=== PATIENT | male | born 1950 | race Caucasian/White ===

== ENCOUNTER 2016-09-08 15:04 | Emergency (ER) | payer MEDICARE, OTHER ==
[~2016-09-08 15:04] MED LIST: Iopamidol 370 76% 100 ML VIAL ONE
[2016-09-08] MEDS ORDERED: Naloxone HCl 2 mg/2 ml Syringe ONE (15:16)
[2016-09-08 15:21] LABS: %Lymphocytes 14.7 % (21.0-51.0); %Neutrophils 76.4 % (42.0-75.0); Hemoglobin 15.5 g/dL (14.0-18.0); Mean Corpuscular HGB CONC 31.6 g/dL (32.0-36.0); Mean Corpuscular Hemoglobin 31.8 pg (27.0-31.0); Mean Platelet Volume 8.3 fL (7.4-10.4); Platelet Count 131 thou/uL (130-400); RBC Distribution Width 14.5 % (11.5-14.5); Red Blood Cell (RBC) Count 4.86 mill/uL (4.70-6.10); White Blood Cell (WBC) Count 7.9 thou/uL (4.8-10.8)
[2016-09-08 15:22] LABS: #Eosinphils 0.2 thou/uL (0.0-0.7); #Lymphocytes 1.2 thou/uL (1.20-3.40); #Monocytes 0.5 thou/uL (0.11-0.59); %Basophils 0.2 % (0.0-1.0); %Eosinophils 2.2 % (0.0-10.0); %Monocytes 6.5 % (0.0-10.0)
[2016-09-08 15:31] LABS: ALT (SGPT) 18 U/L (0-55); AST (SGOT) 21 U/L (5-34); Albumin 3.6 g/dL (3.4-4.8); Alkaline Phosphatase 90 U/L (40-150); Anion Gap 18 mmol/L (10-20); BUN (Urea Nitrogen) 8 mg/dL (8.4-25.7); Bilirubin, Total 0.8 mg/dL (0.2-1.2); Calc. Creatinine Clearance 0 mL/min (70-130); Calcium 9.5 mg/dL (7.8-10.44); Carbon Dioxide 30 mmol/L (23-31); Chloride 101 mmol/L (98-107); Estimated GFR-MDRD 72; Globulin 2.3 g/dL (2.4-3.5); Glucose 127 mg/dL (80-115); Potassium 4.6 mmol/L (3.5-5.1); Protein, Total 5.9 g/dL (5.8-8.1); Sodium 144 mmol/L (136-145)
[2016-09-08 15:36] LABS: CKMB 5.2 ng/mL (0-6.6); Troponin I 0.021 ng/mL (< 0.028)
--- NOTE | 2016-09-08 15:58 | CT ---
EXAM: NONCONTRAST HEAD CT 09/08/16 HISTORY: Injury. COMPARISON: 02/27/14 TECHNIQUE: Noncontrast head CT is performed from the skull base to skull vertex. FINDINGS: Limited evaluation due to motion degradation. No parenchymal hemorrhage. No extra-axial hematoma. No midline shift. Basilar cisterns are patent. Brain volume, age appropriate. Cortical bermudez/white matter differentiation is preserved. Ventricles a nd sulci are patent and symmetric. Adequate aeration of the mastoid air cells. Bilateral ethmoidal m ucosal thickening. Intact calvarium. IMPRESSION: No acute intracranial process. No intracranial posttraumatic sequela. POS: [facility]
[2016-09-08 16:03] LABS: Actual Bicarbonate (HCO3v) 33 mEq/L (24-30)
[2016-09-08 16:04] LABS: Base Excess 5.5 mEq/L (-2 - +2)
--- NOTE | 2016-09-08 16:07 | CT ---
EXAM: CERVICAL SPINE CT WITHOUT CONTRAST 09/08/16 HISTORY: Injury. COMPARISON: 08/01/11 TECHNIQUE: A cervical spine CT is performed without intravenous or intrathecal contrast. Axial images performed from the skull base to the thoracic inlet. Scattered coronal reformatted images are submitted for i nterpretation. FINDINGS: Evaluation of the lower cervical spine is limited by motion degradation. The visualized soft tissue neck structures are unremarkable. Mass effect upon the posterior left and right oropharynx secondary to medial deviation of both carotid arteries. There is small bilateral pleural effusions, Probable chronic changes in the lung apices. Coronal reformatted images demonstrate appropriate alignment of the lateral masses of C1 and C2. Odo ntoid process is intact. Appropriate alignment of the intra-articular facets with evidence of degene rative change. There is a cervical fusion plate with corpectomy and bone graft material spanning fro m C5 through C7. No perihardware lucency. Fusion hardware is not changed when compared to the previo us exam. There is 2.9 mm of anterolisthesis of C2 upon C3 and 2.3 mm of anterolisthesis of C3 upon C 4 likely on the basis of degenerative change. Based on the axial images, there is no acute cervical spine fracture. Varying degrees of central canal stenosis and foraminal narrowing on the basis of degenerative guy e. Limited evaluation by technique. IMPRESSION: 1. Uncomplicated cervical fusion. 2. Grade I anterolisthesis of C2 upon C3 and C3 upon C4 likely due to degenerative change. 3. No evidence of cervical spine fracture. POS: [facility]
[2016-09-08] MEDS ORDERED: Furosemide 20 MG/2 ML VIAL ONE (16:52)
--- NOTE | 2016-09-08 16:55 | RAD ---
PORTABLE AP CHEST: Date: 09-08-16 History: Trauma. FINDINGS: Compared to study on 09-24-15. Post-surgical changes related to anterior cervical fusion are again noted. Left subclavian central venous catheter remains in place. The cardiac silhouette is magnified by projection but is stable i n size from the prior exam and is probably enlarged. There is increased interstitial opacities seen throughout the lungs bilaterally. Patchy parenchymal changes seen at the right lung base. The int erstitial opacities are greater than on the PA and lateral chest x-ray on 09-19-15. Findings are like ly related to either pulmonary edema or infectious process. Follow up to complete resolution is rec ommended. Osseous structures are grossly intact. IMPRESSION: Increase perihilar interstitial opacities with greater patchy parenchymal changes at the right lung base. Findings may be related to interstitial edema or infectious process. Follow up to resolution is recommended. POS: [facility]
--- NOTE | 2016-09-08 17:06 | CT ---
CT CHEST CT ABDOMEN AND PELVIS CT LIMITED THORACIC SPINE CT LIMITED LUMBAR SPINE 09/08/16 HISTORY: Trauma. COMPARISON: None. TECHNIQUE: Although this is a CT chest, abdomen and pelvis with contrast, there is no contrast on this examinat ion. This could be from extravasation or actually no intravenous contrast was given. FINDINGS: Moderate sized bilateral layering pleural effusions with fluid extending to the major fissure bilate rally and right minor fissure. There is also interstitial septal thickening. Evaluation for underlyi ng nodule is limited due to the extent of pleural effusions. Moderate atherosclerotic plaque of the thoracic aorta. There is soft tissue edema in the bilateral a xilla and all throughout the soft tissues of the chest, abdomen and pelvis. Heart size is enlarged. There is dilatation of the pulmonary trunk of 38 mm. The ascending aorta measures up to 35 mm. No ao rtic dilatation. There are numerous mildly prominent mediastinal lymph nodes, largest in the AP window with a conglom eration of lymph nodes. None of these have short axis greater than 1 cm, although are abnormal in nu mber. ABDOMEN/PELVIS: Small volume ascites. Liver, spleen, gallbladder, pancreas unremarkable given noncontrast appearance . Adrenal glands are also mildly nodular. The kidneys are relatively unremarkable. There are vascula r calcifications of both renal arteries. Small volume fluid throughout the mesentery likely sequela of volume overload and congestive heart f ailure. No dilated or thick walled loops of large or small bowel to suggest traumatic injury. The os seous pelvis is intact. 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 Dorsal column stimulator is placed with its tip at the level of the mid T11 vertebral allen dy. Within the abdomen, no significant abnormal adenopathy. Thoracic and lumbar spine are without acute fracture. Sternum is without acute fracture. Visualized portions of the scapulae are without fracture. No displaced rib fracture. IMPRESSION: 1. No traumatic abnormality in the chest, abdomen or pelvis. 2. Evidence of congestive heart failure with cardiomegaly, pleural effusions, and pulmonary briseida ma. 3. Small volume ascites and free fluid throughout the soft tissues. This also be sequela of vol ume overload and CHF as well as loss of normal oncotic pressure. 4. Nonspecific mildly increased number although not enlarged mediastinal lymph nodes may be alison ctive. Followup recommended. POS: [facility]
[2016-09-08 17:39] LABS: Amphetamine Not Detected (NotDetected); Barbiturates Screen Not Detected (NotDetected); Benzodiazepine Screen Not Detected (NotDetected); Cocaine Metabolite Screen Not Detected (NotDetected); Medtox Control Line Valid? VALID (VALID); Methadone Not Detected (NotDetected); Methamphetamine Not Detected (NotDetected); Opiate Screen Detected (NotDetected); Oxycodone Screen Not Detected (NotDetected); Phencyclidine (PCP) Not Detected (NotDetected); THC/Cannabinoid Screen Not Detected (NotDetected); Tricyclic Screen Detected (NotDetected)
--- NOTE | 2016-09-08 17:52 | ERRECORD ---
[facility] EMERGENCY RECORD HPI MENTAL STATUS CHANGES (15:18 ABUS) CHIEF COMPLAINT: Patient presents for evaluation of mental status changes. HISTORIAN: Additional history obtained from EMS, 66 yr old M with reports of COPD, HLD, DM who comes in by EMS with reports of being found down outside of his house while smoking. Unwitnessed event. Duration down unknown. Glucose in field was 140's per EMS. came in on CPAP. LOCATION: Unable to localize symptoms. QUALITY: [place] coma score, Eye opening: (4) - Spontaneous, Verbal: (4) - Confused/disoriented, Motor: (6) - Obeys commands/Spontaneous, GCS Total: 14. TIME COURSE: Patient unable to describe onset of symptoms. ASSOCIATED WITH: No associated symptoms. RELIEVED BY: Patient's condition relieved by nothing. E/M CAVEAT: Emergency room caveat invoked due to patient with mental status changes. ROS (15:21 ABUS) NOTES: Systems not reviewed; unable., Emergency room caveat invoked due to patient with dyspnea. PAST MEDICAL HISTORY (16:43 SFRE) MEDICAL HISTORY: Flu vaccine not up to date, Tetanus not up to date, Pneumococcal vaccine not up to date, Past medical history includes history of diabetes, Past medical history includes history of hypertension. Past medical history includes cardiac history, unspecified arrhythmia, Treated with a pacemaker, since UNKNOWN, Past medical history includes history of diabetes, Type II, noncompliant with treatment regime, Past medical history includes history of hyperlipidemia, high cholesterol, Past medical history includes musculoskeletal disorder, CHRONIC BACK PROBLEMS, NUMBEROUS BACK INJURIES. Verified 09/18/2015. MALE SURGICAL HISTORY: MULTIPLE BACK SURGERIES, KNEE SURGERIES. PAIN PUMP IMPLANT Jul, PACEMAKER, Surgical history of orthopedic surgery, BACK, Notes: 5-6 SURGERIES FROM NUMEROUS INJURIES. Implanted AICD. Verified 09/18/2015. PSYCHIATRIC HISTORY: No previous psychiatric history. Verified 09/18/2015. SOCIAL HISTORY: , Patient smokes 3 packs per day. : SMOKED FOR 49 YEARS, Patient drinks every day, less than 5 drinks per day, Alcohol history notes: 2-3 BEERS/DAY, Patient denies drug use. Verified 09/18/2015. FAMILY HISTORY: Family history is non-contributory to this case. KNOWN ALLERGIES ALLERGIES: (Unconfirmed) Bee Venom (Unconfirmed) CLASS: 28:08.08 - Opiate Agonists (Unconfirmed): Reaction: [id number] &a-1R&a+25V*p+0X*k7808I*c202B*c15G*c2P*p-0X&a-25V&a+1R Name: Warren Flood : 1950 M66 MedRec: [id number] AcctNum: [id number] Prepared: Rene Sep 08, 2016 19:38 by Interface Page 1 of 4 pMD [facility] EMERGENCY RECORD Codeine (Unconfirmed) FOOD ALLERGIES: (Unconfirmed): Source: Patient, - COT[place] CANDY INGREDIENT: INSECT V - INSECT VENOMS (Unconfirmed): Reaction: [id number] INSECTS (Unconfirmed) LATEX ALLERGY? (Unconfirmed) VANILLA EXTRACT (Unconfirmed) CURRENT MEDICATIONS (15:16 AWAT) citalopram: TABLET : Strength - 40 mg : ORAL Patient Dose: Oral As Needed. Klor-Con M20: TABLET, EXT RELEASE, PARTICLES/CRYSTALS : Strength - 20 mEq : ORAL Patient Dose: Oral once a day (in the morning). atorvastatin: TABLET : Strength - 20 mg : ORAL Patient Dose: Oral once a day (at bedtime). Lasix: TABLET : Strength - 80 mg : ORAL Patient Dose: Oral once a day (in the morning). naproxen: TABLET : Strength - 500 mg : ORAL Patient Dose: Oral 2 times a day. [place]: TABLET : Strength - 10 mg-325 mg : ORAL Patient Dose: Oral every 4 to 6 hours.180 tab dated 01/29/14 - EMPTY. VITAL SIGNS (16:33 SFRE) VITAL SIGNS: BP: 165/110, Pulse: 102, Resp: 22 (Moderate Distress), Temp: 97.7 (Tympanic), Pain: 0, O2 sat: 81 on Room Air, Time: 09/08/2016 16:33. PHYSICAL EXAM (15:21 ABUS) CONSTITUTIONAL: Vital Signs Reviewed, Patient afebrile, Pulse normal, Blood pressure normal, Respiratory rate, Abnormal Pulse Oximetry, Patient appears, poorly groomed. HEAD: Head exam normal, Head exam included findings of head atraumatic, normocephalic. EYES: Eye exam normal, Eye exam included findings of eyelids normal to inspection, Pupils equally round and reactive to light, Left pupil 3 mm in size, Right pupil 3 mm in size, Conjunctiva normal, Sclera normal, no periorbital ecchymosis, no periorbital edema, no periorbital erythema. ENT: Ear exam normal, external ear normal, Nose exam normal, no nasal deformity. NECK: Neck exam included findings of normal range of motion, Trachea midline. &a-1R&a+25V*p+0X*[id number]*c202B*c15G*c2P*p-0X&a-25V&a+1R Name: Warren Flood : 1950 M66 MedRec: [id number] AcctNum: [id number] Prepared: Rene Sep 08, 2016 19:38 by Interface Page 2 of 4 pMD [facility] EMERGENCY RECORD RESPIRATORY CHEST: Rales present, to bilateral lower lobes, Chest exam included findings of chest movement symmetrical, Chest expansion equal. CARDIOVASCULAR: Cardiovascular assessment normal, Cardiovascular exam included findings of heart rate regular rate and rhythm, Heart sounds normal, normal S1, normal S2. ABDOMEN MALE: Bowel sounds normal, Distension present, no umbilical hernia present, no ventral hernia. BACK: Back exam normal, Back exam included findings of normal inspection, range of motion normal. UPPER EXTREMITY: no cyanosis, no clubbing, no edema, left dorsal hand abrasion. LOWER EXTREMITY: Lower extremity exam included findings of inspection abnormal, [place] venous insufficiency, Edema present, to bilateral lower extremities, pitting, +2, to knees. NEURO: [place] coma scale, Eye opening: (4) - Spontaneous, Verbal: (4) - Confused/disoriented, Motor: (6) - Obeys commands/Spontaneous, GCS Total: 14. EKG INTERPRETATION (15:17 ABUS) 12 LEAD EKG INTERPRETATION: 12 lead EKG interpreted by Emergency Department Physician at time of study, 12 lead EKG shows normal sinus rhythm, Rate (beats per minute): 71, with no ectopics, Interpretation: normal EKG, Conduction with, incomplete right bundle branch block, ST segments normal, T waves, Leads affected: III, Leads affected: aVf, Leads affected: V3, [place] normal, Clinical impression:, non-specific EKG. RADIOLOGYINTERPRETATION (17:16 ABUS) HEAD: Head CT negative, without contrast, no bleed, no mass, no acute ischemic stroke, no acute changes. NECK: Cervical spine films negative, no fracture, no subluxation, no soft tissue swelling, no foreign body. CHEST: Chest CT, with contrast shows, no fractures, no infiltrate, pneumothorax less than 10% on the left, no hemothorax, pleural effusion 10-50% on the left, pleural effusion 10-50% on the right. ABDOMEN: Abdomen/pelvis CT scan, with contrast negative, no abdominal aortic aneurysm, no appendicitis, no diverticulitis, no kidney stones, no injuries, no mass, no obstruction, no free air, no hydronephrosis. CHEMIST ORGANIC: Preliminary review of CT scans by, ED Physician, Radiologist. MEDICATION ADMINISTRATION SUMMARY Drug Name: Narcan, Dose Ordered: 1 mg, Route: IV Push, Status: Given, Time: 16:57 09/08/2016, &a-1R&a+25V*p+0X*i0067X*c202B*c15G*c2P*p-0X&a-25V&a+1R Name: Warren Flood [place] : 1950 M66 MedRec: [id number] AcctNum: [id number] Prepared: page Sep 08, 2016 19:38 by Interface Page 3 of 4 pMD [facility] EMERGENCY RECORD Drug Name: Lasix injection, Dose Ordered: 20 mg, Route: IV Push, Status: Given, Time: 16:57 09/08/2016, Drug Name: Narcan, Dose Ordered: 1 mg, Route: IV Push, Status: Given, Time: 16:56 09/08/2016, Detailed record available in Medication Service section. DOCTOR NOTES TEXT: 66 yr old M with reports of COPD, HLD, DM who comes in by EMS with reports of being found down outside of his house while smoking. Unwitnessed event. Duration down unknown. EXAM: GCS =14; moves all extremities; airway intact. Responded well to narcan 1 mg and now wants to go home. DDX: Opioid toxidrome, Drug Side Effect, metabolic complications Plan: CT HEAD, cspine, c-collar, narcan, CT Chest abd/pelv. glucose check, labs, VBG DISPO: Pending. (15:24 ABUS) report given to Dr Dumont in [facility] who accepted for transfer. (17:43 ABUS) PROBLEM LIST No recorded problems DIAGNOSIS (17:44 ABUS) FINAL: PRIMARY: Fluid overload, ADDITIONAL: Pulmonary Edema. PRESCRIPTION No recorded prescriptions DISPOSITION PATIENT: Disposition Type: Transfer, Disposition: Transfer to [facility], Disposition Transport: Ambulance, Condition: Good. (17:44 ABUS) Patient left the department. (19:34 SFRE) Wright: ABUS=MD Inder, Kenyon AWAT=DIOR Elias, Steve SFRE=DIOR Castellanos, Carrol &a-1R&a+25V*p+0X*[id number]*c202B*c15G*c2P*p-0X&a-25V&a+1R Name: Warren Flood [place] : 1950 M66 MedRec: [id number] AcctNum: [id number] Prepared: Rene Sep 08, 2016 19:38 by Interface Page 4 of 4 pMD MTDD
--- NOTE | 2016-09-08 17:56 | PICIS ---
[facility] EMERGENCY RECORD COMMUNICATIONS COMMUNICATIONS: Notes: DR HARO AT [facility] ER IN [place] ACCEPTS PT FOR TRANSFER AT THIS TIME. (17:43 AWAT) Notes: STILL UNABLE TO CONTACT PT'S SON OR DAUGHTER. PT VERBALIZED OK TO GO TO [facility] ER, AND THIS IS URGENT, SO WILL PROCEED. (18:17 AWAT) TRIAGE (15:09 AWAT) TRIAGE NOTES: FOUND DOWN. (15:09 AWAT) PATIENT: NAME: Warren Flood, AGE: 66, GENDER: male, : Sat 1950, TIME OF GREET: WedSep 08, 2016 15:05, PREFERRED LANGUAGE: Tajik, ETHNICITY: Not or , ECODE BILLING MAP: [facility], SSN: [id number], Zip Code: [address], KG WEIGHT: 136.08 (est.), PHONE: , , , PERSON ID: [id number]. (15:09 AWAT) COMPLAINT: FALL. (15:09 AWAT) ADMISSION: URGENCY: 3 Urgent, ADMISSION SOURCE: Home, TRANSPORT: AMBULANCE - [facility] EMS, BED: TRIAGE. (15:09 AWAT) PAIN: Patient complains of pain described as, Location ALL OVER--CHRONIC, Pain is constant, Aggravating factors:, Aggravating factors include PALPATION, Pain exacerbated by movement, Pain exacerbated by ROM. (16:43 SFRE) IMMUNIZATIONS: Flu vaccine not up to date. (16:43 SFRE) SIRS SCORING: Heart Rate 55-109 (0), Temp range 96.8-101.1 (0), respiratory rate 12-24 (0), Mental Status altered: no (0). (18:17 SFRE) TREATMENTS IN PROGRESS: Site: LAC, Gauge: 20, See EMS Record, C-Collar in place, Backboard/Spineboard in place, Patient on oxygen, via mask, Patient on chilling hood operator, Rhythm: NSR, Treatments given Prehospital: EMS HAD PATIENT ON CPAP BECAUSE HE SAID HE HAD WET LUNGS, Saline Lock. (18:18 SFRE) PROVIDERS: TRIAGE NURSE: Steve Elias RN. (15:09 AWAT) VITAL SIGNS: BP 165/110, Pulse 102, Resp 22, (Moderate Distress), Temp 97.7, (Tympanic), Pain 0, O2 Sat 81, on Room Air, Time 09/08/2016 16:33. (16:33 SFRE) PREVIOUS VISIT ALLERGIES: Bee Venom, Codeine. (15:09 AWAT) Bee Venom, Codeine. (16:43 SFRE) KNOWN ALLERGIES ALLERGIES: (Unconfirmed) Bee Venom (Unconfirmed) CLASS: 28:08.08 - Opiate Agonists (Unconfirmed): Reaction: [id number] Codeine (Unconfirmed) FOOD ALLERGIES: (Unconfirmed): Source: Patient, - COTTON CANDY INGREDIENT: INSECT V - INSECT VENOMS (Unconfirmed): Reaction: [id number] INSECTS (Unconfirmed) &a-1R&a+25V*p+0X*x5478V*c202B*c15G*c2P*p-0X&a-25V&a+1R Name: Warren Flood : 1950 M66 MedRec: [id number] AcctNum: [id number] Prepared: Rene Sep 08, 2016 19:45 by Interface Page 1 of 16 pMD [facility] EM[facility]GENCY [facility]ORD LATEX ALLERGY? (Unconfirmed) VANILLA EXTRACT (Unconfirmed) CURRENT MEDICATIONS (15:16 AWAT) citalopram: TABLET : Strength - 40 mg : ORAL Patient Dose: Oral As Needed. Klor-Con M20: TABLET, EXT RELEASE, PARTICLES/CRYSTALS : Strength - 20 mEq : ORAL Patient Dose: Oral once a day (in the morning). atorvastatin: TABLET : Strength - 20 mg : ORAL Patient Dose: Oral once a day (at bedtime). Lasix: TABLET : Strength - 80 mg : ORAL Patient Dose: Oral once a day (in the morning). naproxen: TABLET : Strength - 500 mg : ORAL Patient Dose: Oral 2 times a day. [place]: TABLET : Strength - 10 mg-325 mg : ORAL Patient Dose: Oral every 4 to 6 hours.180 tab dated 01/29/14 - EMPTY. VITAL SIGNS (16:33 SFRE) VITAL SIGNS: BP: 165/110, Pulse: 102, Resp: 22 (Moderate Distress), Temp: 97.7 (Tympanic), Pain: 0, O2 sat: 81 on Room Air, Time: 09/08/2016 16:33. NURSING ASSESSMENT: CARDIOVASCULAR (18:11 SFRE) CONSTITUTIONAL: Patient arrives, via stretcher, via Emergency Medical Services, History obtained from, Emergency Medical Services, family member: HOME HEALTH NURSE, Patient appears, in respiratory distress, obese, restless, Patient, lethargic, Patient, responsive to verbal stimuli, Patient is, oriented to person, oriented to place, Skin warm, Skin dry, Skin normal in color, Mucous membranes pink, Mucous membranes, dry, Patient, poorly groomed, with poor personal hygiene, Patient complains of FOUND FACE DOWN ON GROUND BY HOME HEALTH. CARDIOVASCULAR: Cardiovascular assessment findings include heart rate, tachycardic, Heart rhythm normal sinus, Associated with dyspnea, with exertion, when lying flat (orthopnea), with position change, Associated with weakness, GENERALALIZED, Notes: PER HOME HEALTH NURSE HE DOESN'T USE O2 NEEDED. RESPIRATORY/CHEST: Lungs auscultated, Respiratory assessment findings include respiratory effort easy, Respirations regular, Conversing normally, Neck and chest exam findings include trachea &a-1R&a+25V*p+0X*i7339B*c202B*c15G*c2P*p-0X&a-25V&a+1R Name: Warren Flood : 1950 M66 MedRec: [id number] AcctNum: [id number] Prepared: WedSep 08, 2016 19:45 by Interface Page 2 of 16 pMD [facility] EMERGENCY RECORD midline, Chest expansion equal, Chest movement symmetrical, Signs of distress, in moderate distress, no associated cough noted, no associated fever. SAFETY: Side rails up, Cart/Stretcher in lowest position, Family at bedside, Call light within reach, Hospital ID band on. NURSING ASSESSMENT: RESPIRATORY /CHEST (18:26 SFRE) RESPIRATORY/CHEST: Lungs auscultated, Breath sounds with rhonchi, Respiratory assessment findings include respiratory effort, shallow, PATIENT IS OBESES AND VERY WEAK, Respirations regular, Converses, in short phrases, Neck and chest exam findings include trachea midline, Chest expansion equal, Chest movement symmetrical, Signs of distress, in mild distress, no associated cough noted, no associated fever, Notes: PLACED ON 2L N/C. ENT: Mouth and throat assessment findings include mouth inspection normal, Uvula normal, Tonsils normal, Mucous membranes pink, and moist, Able to swallow, Speech normal. SAFETY: Side rails up, Cart/Stretcher in lowest position, Call light within reach, Hospital ID band on. NURSING PROCEDURE: PIPELINE OPERATOR (15:09 SFRE) PIPELINE OPERATOR: Cardiac monitoring indicated for mental status changes, Cardiac monitoring indicated for SOB, Patient placed on chilling hood operator, Heart rate: 102, showing sinus tachycardia, Patient placed on non-invasive blood pressure monitor, Patient placed on continuous pulse oximetry, Adult/pediatric oxisensor applied, Oxygen saturation 100%, Notes: 100% ON ROOM AIR. NURSING PROCEDURE: EKG CHART (18:25 SFRE) EK lead EKG performed on the left chest, done by LUIS ANTONIO PAL, first EKG. FOLLOW-UP: After procedure, EKG for interpretation given to Dr. TAYLOR. NURSING PROCEDURE: INTAKE AND OUTPUT (18:54 SFRE) INTAKE AND OUTPUT: Total Intake (ml): 0ml, Urine output(ml): 1750, Total Output (ml): 99518430ls, Grand Total: Output is greater than intake by 1750mls. NURSING PROCEDURE: IV IV SITE 1: IV therapy indicated for hydration, IV therapy indicated for medication administration, IV therapy indicated for SOB, IV established, to the left antecubital, using a 20 gauge catheter, Flushed with normal saline (mls): BY EMS CHEESE PACKER. (15:09 SFRE) FOLLOW-UP SITE 1: After procedure, no drainage at IV site, After procedure, no swelling at IV site, After procedure, no redness at IV site. (18:54 SFRE) &a-1R&a+25V*p+0X*b1808V*c202B*c15G*c2P*p-0X&a-25V&a+1R Name: Warren Flood : 1950 M66 MedRec: [id number] AcctNum: [id number] Prepared: WedSep 08, 2016 19:45 by Interface Page 3 of 16 D [facility] EMERGENCY RECORD NURSING PROCEDURE: URINE COLLECTION (18:21 AWAT) PATIENT IDENTIFIER: Patient actively involved in identification process, Patient's identity verified by patient stating name, Patient's identity verified by hospital ID bracelet. URINE COLLECTION MALE: Urine collection indicated for CONSTANT INCONTINENCE, TRYING TO CRAWL OOB TO URINARE BESIDE THE URINAL., Notes: NO URINE NEEDED. ALREADY SENT PREVIOUS SPECIMEN TO LAB. NOTES: Patient tolerated procedure well, Notes: 16 FR F/C INSERTED PER STERILE TECHNIQUE. PATRICK CLAMPED AT 600ML X 10 MINUTES, THEN RE-OPENED. SAFETY: Side rails up, Cart/Stretcher in lowest position, Call light within reach, Hospital ID band on, Physician notified of above findings. ORDER DETAILS Order Name: B type Natriuretic Peptide, Status: Active, Time: 15:10 09/08/2016, User: ABUS, - Ordered for: MD Taylor Anthony, - Entered by: MD Taylor Anthony - Tue Sep 08, 2016 15:10, - Quantity: 1, Order Name: PIPELINE OPERATOR ED, Status: Done, Time: 15:27 09/08/2016, User: MEMO, - Ordered for: MD Taylor Anthony, - Entered by: MD Taylor Anthony - Tue Sep 08, 2016 15:10, - Quantity: 1, Order Name: Cardiac Profile w/CKMB & Troponin - I, Status: Active, Time: 15:10 09/08/2016, User: ABUS, - Ordered for: MD Taylor Anthony, - Entered by: MD Taylor Anthony - Tue Sep 08, 2016 15:10, - Quantity: 1, Order Name: CBC with Differential, Status: Active, Time: 15:10 09/08/2016, User: ABUS, - Ordered for: MD Taylor Anthony, - Entered by: MD Taylor Anthony - Tue Sep 08, 2016 15:10, - Quantity: 1, Order Name: CK (CPK), Status: Active, Time: 15:19 09/08/2016, User: ABUS, - Ordered for: MD Taylor Anthony, - Entered by: MD Taylor Anthony - Tue Sep 08, 2016 15:19, - Quantity: 1, Order Name: Comprehensive Metabolic Panel, Status: Active, Time: 15:10 09/08/2016, User: ABUS, - Ordered for: MD Taylor Anthony, - Entered by: MD Taylor Anthony - Tue Sep 08, 2016 15:10, - Quantity: 1, Order Name: CT Brain WO Con, Status: Active, Time: 15:13 09/08/2016, User: KILLIAN, - Ordered for: MD Taylor Anthony, &a-1R&a+25V*p+0X*n7027K*c202B*c15G*c2P*p-0X&a-25V&a+1R Name: Warren Flood : 1950 M66 MedRec: [id number] AcctNum: [id number] Prepared: Rene Sep 08, 2016 19:45 by Interface Page 4 of 16 D [facility] EMERGENCY RECORD - Entered by: MD Taylor Anthony - Tue Sep 08, 2016 15:13, - Quantity: 1, Order Name: CT Cervical Spine WO Con, Status: Active, Time: 15:13 09/08/2016, User: ABUS, - Ordered for: MD Taylor Anthony, - Entered by: MD Taylor Anthony - Tue Sep 08, 2016 15:13, - Quantity: 1, Order Name: CT Chest Abd Pelvis W Con(Trauma), Status: Active, Time: 15:13 09/08/2016, User: ABUS, - Ordered for: MD Taylor Anthony, - Entered by: MD Taylor Anthony - Tue Sep 08, 2016 15:13, - Quantity: 1, Order Name: Drug Screen, Urine, Status: Active, Time: 15:50 09/08/2016, User: ABUS, - Ordered for: MD Taylor Anthony, - Entered by: MD Taylor Anthony - Tue Sep 08, 2016 15:50, - Quantity: 1, Order Name: EKG 12 Lead in Emergency Room, Status: Active, Time: 15:10 09/08/2016, User: ABUS, - Ordered for: MD Taylor Anthony, - Entered by: MD Taylor Anthony - Tue Sep 08, 2016 15:10, - Quantity: 1, Order Name: ERRT Emerg Room CPAP Treatment, Status: Active, Time: 15:11 09/08/2016, User: ABUS, - Ordered for: MD Taylor Anthony, - Entered by: MD Taylor Anthony - page Sep 08, 2016 15:11, - Quantity: 1, Order Name: ERRT Oxygen Usage ER, Status: Active, Time: 15:10 09/08/2016, User: ABUS, - Ordered for: MD Taylor Anthony, - Entered by: MD Taylor Anthony - Rene Sep 08, 2016 15:10, - Quantity: 1, Order Name: ERRT Pulse Oximeter ER, Status: Active, Time: 15:10 09/08/2016, User: ABUS, - Ordered for: MD Taylor Anthony, - Entered by: MD Taylor Anthony - Rene Sep 08, 2016 15:10, - Quantity: 1, Order Name: PATRICK CATHETER ED, Status: Done, Time: 18:23 09/08/2016, User: [email or web address], - Ordered for: MD Taylor Anthony, - Entered by: DIOR Elias Adam - WedSep 08, 2016 18:20, - Quantity: 1, Order Name: INTAKE& OUTPUT MONITORING ED, Status: Done, Time: 16:58 09/08/2016, User: SFRE, - Ordered for: MD Taylor Anthony, - Entered by: MD Taylor Anthony - page Sep 08, 2016 15:53, - Quantity: 1, Order Name: Myoglobin Serum, Status: Active, Time: 15:19 09/08/2016, User: ABUS, - Ordered for: MD Taylor Anthony, &a-1R&a+25V*p+0X*p5209R*c202B*c15G*c2P*p-0X&a-25V&a+1R Name: Warren Flood : 1950 M66 MedRec: [id number] AcctNum: [id number] Prepared: WedSep 08, 2016 19:45 by Interface Page 5 of 16 pMD [facility] EMERGENCY RECORD - Entered by: MD Taylor Anthony - Rene Sep 08, 2016 15:19, - Quantity: 1, Order Name: SALINE LOCK, Status: Done, Time: 15:27 09/08/2016, User: MEMO, - Ordered for: MD Taylor Anthony, - Entered by: MD Taylor Anthony - Tue Sep 08, 2016 15:10, - Quantity: 1, Order Name: VBG (For BUR,MAD, and AMIRA), Status: Active, Time: 15:11 09/08/2016, User: KILLIAN, - Ordered for: MD Taylor Anthony, - Entered by: MD Taylor Anthony - Tue Sep 08, 2016 15:11, - Quantity: 1, Order Name: XR Chest 1 View Portable, Status: Active, Time: 15:20 09/08/2016, User: KILLIAN, - Ordered for: MD Taylor Anthony, - Entered by: MD Taylor Anthony - Tue Sep 08, 2016 15:20, - Quantity: 1. MEDICATION ADMINISTRATION SUMMARY Drug Name: Narcan, Dose Ordered: 1 mg, Route: IV Push, Status: Given, Time: 16:57 09/08/2016, Drug Name: Lasix injection, Dose Ordered: 20 mg, Route: IV Push, Status: Given, Time: 16:57 09/08/2016, Drug Name: Narcan, Dose Ordered: 1 mg, Route: IV Push, Status: Given, Time: 16:56 09/08/2016, Detailed record available in Medication Service section. MEDICATION SERVICE Lasix injection: Order: Lasix injection (furosemide) - Dose: 20 mg : IV Push Schedule: Now Ordered by: Kenyon Taylor MD Entered by: Kenyon Taylor MD WedSep 08, 2016 15:52 , Acknowledged by: Carrol Castellanos RN WedSep 08, 2016 16:50 Documented as given by: Carrol Castellanos RN WedSep 08, 2016 16:57 Patient, Medication, Dose, Route and Time verified prior to administration. Amount given: 20MG, IV SITE #1 IVP, repeat same medication, Slowly, Awake and alert- acceptable, Catheter placement confirmed via flush prior to administration, IV site without signs or symptoms of infiltration during medication administration, No swelling during administration, No drainage during administration, IV flushed after administration, Correct patient, time, route, dose and medication confirmed prior to administration, Patient advised of actions and side-effects prior to administration, Allergies confirmed and medications reviewed prior to administration, Patient in position of comfort, Side rails up, Cart in lowest position, Family at bedside. Narcan: Order: Narcan (naloxone HCl) - Dose: 1 mg : IV Push &a-1R&a+25V*p+0X*j4602E*c202B*c15G*c2P*p-0X&a-25V&a+1R Name: Warren Flood : 1950 M66 MedRec: [id number] AcctNum: [id number] Prepared: WedSep 08, 2016 19:45 by Interface Page 6 of 16 pMD [facility] EMERGENCY RECORD Ordered by: Kenyon Taylor MD Entered by: Kenyon Taylor MD WedSep 08, 2016 16:41 , Acknowledged by: Carrol Castellanos RN WedSep 08, 2016 16:50 Documented as given by: Carrol Castellanos RN Sep 08, 2016 16:56 Patient, Medication, Dose, Route and Time verified prior to administration. Amount given: 1MG, IV SITE #1 IVP, initial medication, Slightly drowsey, easily aroused-acceptable, Catheter placement confirmed via flush prior to administration, IV site without signs or symptoms of infiltration during medication administration, No swelling during administration, No drainage during administration, IV flushed after administration, Correct patient, time, route, dose and medication confirmed prior to administration, Patient advised of actions and side-effects prior to administration, Allergies confirmed and medications reviewed prior to administration. Narcan: Order: Narcan (naloxone HCl) - Dose: 1 mg : IV Push Ordered by: Kenyon Taylor MD Entered by: Kenyon Taylor MD WedSep 08, 2016 15:14 , Acknowledged by: Carrol Castellanos RN Sep 08, 2016 16:50 Documented as given by: Carrol Castellanos RN Sep 08, 2016 16:57 Patient, Medication, Dose, Route and Time verified prior to administration. Amount given: 1MG, IV SITE #1 IVP, initial medication, repeat same medication, Awake and alert- acceptable, Catheter placement confirmed via flush prior to administration, IV site without signs or symptoms of infiltration during medication administration, No swelling during administration, No drainage during administration, IV flushed after administration, Correct patient, time, route, dose and medication confirmed prior to administration, Patient advised of actions and side-effects prior to administration, Allergies confirmed and medications reviewed prior to administration, Patient in position of comfort, Side rails up, Cart in lowest position, Family at bedside. HPI MENTAL STATUS CHANGES (15:18 ABUS) CHIEF COMPLAINT: Patient presents for evaluation of mental status changes. HISTORIAN: Additional history obtained from EMS, 66 yr old M with reports of COPD, HLD, DM who comes in by EMS with reports of being found down outside of his house while smoking. Unwitnessed event. Duration down unknown. Glucose in field was 140's per EMS. came in on CPAP. LOCATION: Unable to localize symptoms. QUALITY: Hardin coma score, Eye opening: (4) - Spontaneous, Verbal: (4) - Confused/disoriented, Motor: (6) - Obeys commands/Spontaneous, GCS Total: 14. TIME COURSE: Patient unable to describe onset of symptoms. ASSOCIATED WITH: No associated symptoms. RELIEVED BY: Patient's condition relieved by nothing. E/M CAVEAT: Emergency room caveat invoked due to patient with mental status changes. &a-1R&a+25V*p+0X*d7153N*c202B*c15G*c2P*p-0X&a-25V&a+1R Name: Warren Flood : 1950 M66 MedRec: [id number] AcctNum: [id number] Prepared: Rene Sep 08, 2016 19:45 by Interface Page 7 of 16 pMD [facility] EMERGENCY RECORD ROS (15:21 ABUS) NOTES: Systems not reviewed; unable., Emergency room caveat invoked due to patient with dyspnea. PAST MEDICAL HISTORY (16:43 SFRE) MEDICAL HISTORY: Flu vaccine not up to date, Tetanus not up to date, Pneumococcal vaccine not up to date, Past medical history includes history of diabetes, Past medical history includes history of hypertension. Past medical history includes cardiac history, unspecified arrhythmia, Treated with a pacemaker, since UNKNOWN, Past medical history includes history of diabetes, Type II, noncompliant with treatment regime, Past medical history includes history of hyperlipidemia, high cholesterol, Past medical history includes musculoskeletal disorder, CHRONIC BACK PROBLEMS, NUMBEROUS BACK INJURIES. Verified 09/18/2015. MALE SURGICAL HISTORY: MULTIPLE BACK SURGERIES, KNEE SURGERIES. PAIN PUMP IMPLANT Jul, PACEMAKER, Surgical history of orthopedic surgery, BACK, Notes: 5-6 SURGERIES FROM NUMEROUS INJURIES. Implanted AICD. Verified 09/18/2015. PSYCHIATRIC HISTORY: No previous psychiatric history. Verified 09/18/2015. SOCIAL HISTORY: , Patient smokes 3 packs per day. : SMOKED FOR 49 YEARS, Patient drinks every day, less than 5 drinks per day, Alcohol history notes: 2-3 BEERS/DAY, Patient denies drug use. Verified 09/18/2015. FAMILY HISTORY: Family history is non-contributory to this case. PHYSICAL EXAM (15:21 ABUS) CONSTITUTIONAL: Vital Signs Reviewed, Patient afebrile, Pulse normal, Blood pressure normal, Respiratory rate, Abnormal Pulse Oximetry, Patient appears, poorly groomed. HEAD: Head exam normal, Head exam included findings of head atraumatic, normocephalic. EYES: Eye exam normal, Eye exam included findings of eyelids normal to inspection, Pupils equally round and reactive to light, Left pupil 3 mm in size, Right pupil 3 mm in size, Conjunctiva normal, Sclera normal, no periorbital ecchymosis, no periorbital edema, no periorbital erythema. ENT: Ear exam normal, external ear normal, Nose exam normal, no nasal deformity. NECK: Neck exam included findings of normal range of motion, Trachea midline. RESPIRATORY CHEST: Rales present, to bilateral lower lobes, Chest exam included findings of chest movement symmetrical, Chest expansion equal. CARDIOVASCULAR: Cardiovascular assessment normal, Cardiovascular exam included findings of heart rate regular rate and rhythm, Heart &a-1R&a+25V*p+0X*h0077F*c202B*c15G*c2P*p-0X&a-25V&a+1R Name: Warren Flood : 1950 M66 MedRec: [id number] AcctNum: [id number] Prepared: Rene Sep 08, 2016 19:45 by Interface Page 8 of 16 pMD [facility] EMERGENCY RECORD sounds normal, normal S1, normal S2. ABDOMEN MALE: Bowel sounds normal, Distension present, no umbilical hernia present, no ventral hernia. BACK: Back exam normal, Back exam included findings of normal inspection, range of motion normal. UPPER EXTREMITY: no cyanosis, no clubbing, no edema, left dorsal hand abrasion. LOWER EXTREMITY: Lower extremity exam included findings of inspection abnormal, Issa LE venous insufficiency, Edema present, to bilateral lower extremities, pitting, +2, to knees. NEURO: Kendall coma scale, Eye opening: (4) - Spontaneous, Verbal: (4) - Confused/disoriented, Motor: (6) - Obeys commands/Spontaneous, GCS Total: 14. EVENTS TRANSFER: Triage to Emergency Triage. (WedSep 08, 2016 15:09 AWAT) Emergency Triage to Main ED -02. (15:10 AWAT) Removed from Emergency Main ED -02. (19:34 SFRE) RADIOLOGYINTERPRETATION (17:16 ABUS) HEAD: Head CT negative, without contrast, no bleed, no mass, no acute ischemic stroke, no acute changes. NECK: Cervical spine films negative, no fracture, no subluxation, no soft tissue swelling, no foreign body. CHEST: Chest CT, with contrast shows, no fractures, no infiltrate, pneumothorax less than 10% on the left, no hemothorax, pleural effusion 10-50% on the left, pleural effusion 10-50% on the right. ABDOMEN: Abdomen/pelvis CT scan, with contrast negative, no abdominal aortic aneurysm, no appendicitis, no diverticulitis, no kidney stones, no injuries, no mass, no obstruction, no free air, no hydronephrosis. IMMIGRATION LAWYER: Preliminary review of CT scans by, ED Physician, Radiologist. EKG INTERPRETATION (15:17 ABUS) 12 LEAD EKG INTERPRETATION: 12 lead EKG interpreted by Emergency Department Physician at time of study, 12 lead EKG shows normal sinus rhythm, Rate (beats per minute): 71, with no ectopics, Interpretation: normal EKG, Conduction with, incomplete right bundle branch block, ST segments normal, T waves, Leads affected: III, Leads affected: aVf, Leads affected: V3, [place] normal, Clinical impression:, non-specific EKG. DOCTOR NOTES TEXT: 66 yr old M with reports of COPD, HLD, DM who comes in by EMS with reports of being found down outside of his house while &a-1R&a+25V*p+0X*m4041Z*c202B*c15G*c2P*p-0X&a-25V&a+1R Name: Warren Flood : 1950 M66 MedRec: [id number] AcctNum: [id number] Prepared: WedSep 08, 2016 19:45 by Interface Page 9 of 16 pMD [facility] EMERGENCY RECORD smoking. Unwitnessed event. Duration down unknown. EXAM: GCS =14; moves all extremities; airway intact. Responded well to narcan 1 mg and now wants to go home. DDX: Opioid toxidrome, Drug Side Effect, metabolic complications Plan: CT HEAD, cspine, c-collar, narcan, CT Chest abd/pelv. glucose check, labs, VBG DISPO: Pending. (15:24 ABUS) report given to Dr Haro in [place] ED who accepted for transfer. (17:43 ABUS) PROBLEM LIST No recorded problems DIAGNOSIS (17:44 ABUS) FINAL: PRIMARY: Fluid overload, ADDITIONAL: Pulmonary Edema. DISPOSITION PATIENT: Disposition Type: Transfer, Disposition: Transfer to [facility], Disposition Transport: Ambulance, Condition: Good. (17:44 ABUS) Patient left the department. (19:34 SFRE) PRESCRIPTION No recorded prescriptions IMAGING *EKG: Image captured from scanner. (15:41 JPAR) *MEMORANDUM OF TRANSFER: Image captured from scanner. (18:13 AWAT) EMS TRANSPORT ORDERS: Image captured from scanner. (18:13 AWAT) CONSENTS: Image captured from scanner. (18:15 AWAT) TRANSFER WORKSHEET: Image captured from scanner. (19:19 ADEA) Page 2 added. Image captured from scanner. (19:20 ADEA) *SUPPLY CHARGE SHEET: Image captured from scanner. (19:21 ADEA) MIST: Image captured from scanner. (19:27 SFRE) MEDS: Image captured from scanner. (19:28 SFRE) VITAL SIGNS: Image captured from scanner. (19:28 SFRE) ADMIN (17:44 ABUS) DIGITAL SIGNATURE: MD Inder, Kenyon. RESULTS RADIOLOGY: CT Cervical Spine WO Con Observe DT: WedSep 08, 2016 15:15, CSP EXAM: CERVICAL SPINE CT WITHOUT CONTRAST 09/08/16 &a-1R&a+25V*p+0X*e0819X*c202B*c15G*c2P*p-0X&a-25V&a+1R Name: Warren Flood : 1950 M66 MedRec: [id number] AcctNum: [id number] Prepared: WedSep 08, 2016 19:45 by Interface Page 10 of 16 [facility] EMERGENCY RECORD HISTORY: Injury. COMPARISON: 08/01/11 TECHNIQUE: A cervical spine CT is performed without intravenous or intrathecal contrast. Axial images performed from the skull base to the thoracic inlet. Scattered coronal reformatted images are submitted for i nterpretation. FINDINGS: Evaluation of the lower cervical spine is limited by motion degradation. The visualized soft tissue neck structures are unremarkable. Mass effect upon the posterior left and right oropharynx secondary to medial deviation of both carotid arteries. There is small bilateral pleural effusions, Probable chronic changes in the lung apices. Coronal reformatted images demonstrate appropriate alignment of the lateral masses of C1 and C2. Odo ntoid process is intact. Appropriate alignment of the intra-articular facets with evidence of degene rative change. There is a cervical fusion plate with corpectomy and bone graft material spanning fro m C5 through C7. No perihardware lucency. Fusion hardware is not changed when compared to the previo us exam. There is 2.9 mm of anterolisthesis of C2 upon C3 and 2.3 mm of anterolisthesis of C3 upon C 4 likely on the basis of degenerative change. Based on the axial images, there is no acute cervical spine fracture. Varying degrees of central canal stenosis and foraminal narrowing on the basis of degenerative guy e. Limited evaluation by technique. IMPRESSION: 1. Uncomplicated cervical fusion. 2. Grade I anterolisthesis of C2 upon C3 and C3 upon C4 likely due to degenerative change. 3. No evidence of cervical spine fracture. POS: H . (16:39 ABUS) CT Brain WO Con Observe DT: WedSep 08, 2016 15:15, BR &a-1R&a+25V*p+0X*i9762K*c202B*c15G*c2P*p-0X&a-25V&a+1R Name: Warren Flood : 1950 M66 MedRec: [id number] AcctNum: [id number] Prepared: WedSep 08, 2016 19:45 by Interface Page 11 of 16 [facility] EMERGENCY RECORD EXAM: NONCONTRAST HEAD CT 09/08/16 HISTORY: Injury. COMPARISON: 02/27/14 TECHNIQUE: Noncontrast head CT is performed from the skull base to skull vertex. FINDINGS: Limited evaluation due to motion degradation. No parenchymal hemorrhage. No extra-axial hematoma. No midline shift. Basilar cisterns are patent. Brain volume, age appropriate. Cortical bermudez/white matter differentiation is preserved. Ventricles a nd sulci are patent and symmetric. Adequate aeration of the mastoid air cells. Bilateral ethmoidal m ucosal thickening. Intact calvarium. IMPRESSION: No acute intracranial process. No intracranial posttraumatic sequela. POS: [facility] . (16:39 ABUS) LABORATORY: CK (CPK) Collection DT: WedSep 08, 2016 15:45, CK (CPK) 157 U/L, Range (30-200). (15:50 ABUS) B type Natriuretic Peptide Collection DT: WedSep 08, 2016 15:15, *B type Natriuretic Peptide 326.9 - H pg/mL, Range (0-100). (15:50 ABUS) Cardiac Profile w/CKMB & TropI Collection DT: WedSep 08, 2016 15:15, CKMB 5.2 ng/mL, Range (0-6.6), Troponin I 0.021 ng/mL, Range (< 0.028), Reference Range , 0.00 - 0.028 ng/mL Negative 0.029 - 0.29 ng/mL , Indeterminate Greater or Equal to 0.3 ng/mL Strongly suggests IA , . (15:50 ABUS) Comprehensive Metabolic Panel Collection DT: WedSep 08, 2016 15:15, Sodium 144 mmol/L, Range (136-145), Potassium 4.6 mmol/L, Range (3.5-5.1), Chloride 101 mmol/L, Range (98-107), Carbon Dioxide 30 mmol/L, Range (23-31), Anion Gap 18 mmol/L, Range (10-20), *BUN (Urea Nitrogen) 8 - L mg/dL, Range (8.4-25.7), &a-1R&a+25V*p+0X*i8841P*c202B*c15G*c2P*p-0X&a-25V&a+1R Name: Warren Flood : 1950 M66 MedRec: [id number] AcctNum: [id number] Prepared: WedSep 08, 2016 19:45 by Interface Page 12 of 16 [facility] EMERGENCY RECORD Creatinine 1.03 mg/dL, Range (0.7-1.3), Estimated GFR-MDRD 72 , Reference Range for Estimated GFR: Greater than 90, mL/min/1.73 m2 NOTE: The MDRD equation has not been validated for use, with the elderly (over 70 years of age), women, patients with, serious comorbid condition or persons with extremes of body size, muscle, mass, or nutritional status. , *Glucose 127 - H mg/dL, Range (80-115), Calcium 9.5 mg/dL, Range (7.8-10.44), Bilirubin, Total 0.8 mg/dL, Range (0.2-1.2), Protein, Total 5.9 g/dL, Range (5.8-8.1), NOTE: Plasma values are generally 0.3 to 0.5 g/dL higher than serum values, due to the presence of fibrinogen. , Albumin 3.6 g/dL, Range (3.4-4.8), *Globulin 2.3 - L g/dL, Range (2.4-3.5), Alb/Glob Ratio 1.6 g/dL, Range (1.2-2.2), Alkaline Phosphatase 90 U/L, Range (40-150), AST (SGOT) 21 U/L, Range (5-34), ALT (SGPT) 18 U/L, Range (0-55). (15:50 ABUS) CBC with Differential Collection DT: WedSep 08, 2016 15:15, White Blood Cell (WBC) Count 7.9 thou/uL, Range (4.8-10.8), Red Blood Cell (RBC) Count 4.86 mill/uL, Range (4.70-6.10), Hemoglobin 15.5 g/dL, Range (14.0-18.0), Hematocrit 48.9 %, Range (42.0-52.0), *Mean Corpuscular Volume 101.0 - H fL, Range (80.0-94.0), *Mean Corpuscular Hemoglobin 31.8 - H pg, Range (27.0-31.0), *Mean Corpuscular HGB CONC 31.6 - L g/dL, Range (32.0-36.0), RBC Distribution Width 14.5 %, Range (11.5-14.5), Platelet Count 131 thou/uL, Range (130-400), Mean Platelet Volume 8.3 fL, Range (7.4-10.4), *%Neutrophils 76.4 - H %, Range (42.0-75.0), *%Lymphocytes 14.7 - L %, Range (21.0-51.0), %Monocytes 6.5 %, Range (0.0-10.0), %Eosinophils 2.2 %, Range (0.0-10.0), %Basophils 0.2 %, Range (0.0-1.0), #Neutrophils 6.0 thou/uL, Range (1.40-6.50), #Lymphocytes 1.2 thou/uL, Range (1.20-3.40), #Monocytes 0.5 thou/uL, Range (0.11-0.59), #Eosinphils 0.2 thou/uL, Range (0.0-0.7), #Basophils 0.0 thou/uL, Range (0.0-0.2). (15:50 ABUS) Cardiac Profile w/CKMB & TropI Collection DT: WedSep 08, 2016 15:15, CKMB 5.2 ng/mL, Range (0-6.6), Troponin I 0.021 ng/mL, Range (< 0.028), Reference Range , 0.00 - 0.028 ng/mL Negative 0.029 - 0.29 ng/mL , Indeterminate &a-1R&a+25V*p+0X*i8273P*c202B*c15G*c2P*p-0X&a-25V&a+1R Name: Warren Flood : 1950 M66 MedRec: [id number] AcctNum: [id number] Prepared: WedSep 08, 2016 19:45 by Interface Page 13 of 16 [facility] EMERGENCY RECORD Greater or Equal to 0.3 ng/mL Strongly suggests IA , . (16:16 SFRE) Comprehensive Metabolic Panel Collection DT: WedSep 08, 2016 15:15, Sodium 144 mmol/L, Range (136-145), Potassium 4.6 mmol/L, Range (3.5-5.1), Chloride 101 mmol/L, Range (98-107), Carbon Dioxide 30 mmol/L, Range (23-31), Anion Gap 18 mmol/L, Range (10-20), *BUN (Urea Nitrogen) 8 - L mg/dL, Range (8.4-25.7), Creatinine 1.03 mg/dL, Range (0.7-1.3), Estimated GFR-MDRD 72 , Reference Range for Estimated GFR: Greater than 90, mL/min/1.73 m2 NOTE: The MDRD equation has not been validated for use, with the elderly (over 70 years of age), women, patients with, serious comorbid condition or persons with extremes of body size, muscle, mass, or nutritional status. , *Glucose 127 - H mg/dL, Range (80-115), Calcium 9.5 mg/dL, Range (7.8-10.44), Bilirubin, Total 0.8 mg/dL, Range (0.2-1.2), Protein, Total 5.9 g/dL, Range (5.8-8.1), NOTE: Plasma values are generally 0.3 to 0.5 g/dL higher than serum values, due to the presence of fibrinogen. , Albumin 3.6 g/dL, Range (3.4-4.8), *Globulin 2.3 - L g/dL, Range (2.4-3.5), Alb/Glob Ratio 1.6 g/dL, Range (1.2-2.2), Alkaline Phosphatase 90 U/L, Range (40-150), AST (SGOT) 21 U/L, Range (5-34), ALT (SGPT) 18 U/L, Range (0-55). (16:16 SFRE) CBC with Differential Collection DT: WedSep 08, 2016 15:15, White Blood Cell (WBC) Count 7.9 thou/uL, Range (4.8-10.8), Red Blood Cell (RBC) Count 4.86 mill/uL, Range (4.70-6.10), Hemoglobin 15.5 g/dL, Range (14.0-18.0), Hematocrit 48.9 %, Range (42.0-52.0), *Mean Corpuscular Volume 101.0 - H fL, Range (80.0-94.0), *Mean Corpuscular Hemoglobin 31.8 - H pg, Range (27.0-31.0), *Mean Corpuscular HGB CONC 31.6 - L g/dL, Range (32.0-36.0), RBC Distribution Width 14.5 %, Range (11.5-14.5), Platelet Count 131 thou/uL, Range (130-400), Mean Platelet Volume 8.3 fL, Range (7.4-10.4), *%Neutrophils 76.4 - H %, Range (42.0-75.0), *%Lymphocytes 14.7 - L %, Range (21.0-51.0), %Monocytes 6.5 %, Range (0.0-10.0), %Eosinophils 2.2 %, Range (0.0-10.0), %Basophils 0.2 %, Range (0.0-1.0), #Neutrophils 6.0 thou/uL, Range (1.40-6.50), #Lymphocytes 1.2 thou/uL, Range (1.20-3.40), #Monocytes 0.5 thou/uL, Range (0.11-0.59), &a-1R&a+25V*p+0X*n6142C*c202B*c15G*c2P*p-0X&a-25V&a+1R Name: Warren Flood : 1950 M66 MedRec: [id number] AcctNum: [id number] Prepared: WedSep 08, 2016 19:45 by Interface Page 14 of 16 [facility] EMERGENCY RECORD #Eosinphils 0.2 thou/uL, Range (0.0-0.7), #Basophils 0.0 thou/uL, Range (0.0-0.2). (16:16 SFRE) Blood Gas-Venous Collection DT: WedSep 08, 2016 15:15, pH (venous) 7.360 , Range (7.34-7.37), *CO2 Tension (PvCO2) 58.0 - *H mmHg, Range (44-46), Results called to, and verbally verified through read-back by: will take todoctor. @ENTER PERSON CALLED IN THE BRACKETS. by: IZZY Boss on 09/08/16, at 1603., *O2 Tension (PvO2) 202.0 - *H mmHg, Range (38-42), Results called to, and verbally verified through read-back by: will take todr. @ENTER PERSON CALLED IN THE BRACKETS. by: IZZY Boss on 09/08/16 at, 1603., *Actual Bicarbonate (HCO3v) 33 - H mEq/L, Range (24-30), Base Excess 5.5 mEq/L, Range (-2 - +2). (16:39 ABUS) Drug Screen, Urine Collection DT: WedSep 08, 2016 17:27, THC/Cannabinoid Screen Not Detected , Range (NotDetected), Phencyclidine (PCP) Not Detected , Range (NotDetected), Cocaine Metabolite Screen Not Detected , Range (NotDetected), Methamphetamine Not Detected , Range (NotDetected), *Opiate Screen Detected - H , Range (NotDetected), Amphetamine Not Detected , Range (NotDetected), Benzodiazepine Screen Not Detected , Range (NotDetected), *Tricyclic Screen Detected - H , Range (NotDetected), Methadone Not Detected , Range (NotDetected), Barbiturates Screen Not Detected , Range (NotDetected), Oxycodone Screen Not Detected , Range (NotDetected), Propoxyphene Screen Not Detected , Range (NotDetected), Drug Screen Cutoff , Range (), The [place] Profile-V Panel for Qualitative Drugs of Abuse assays are for, presumptive screening testing only. The drug class and detection limits, are as follows: Drug Class Detection Limit Amphetamine , 500 ng/mL* Barbiturates 200 ng/mL , Benzodiazepines 150 ng/mL* Cocaine 150 ng/mL*, Methamphetamine 500 ng/mL* Methadone 200, ng/mL* Opiates 100 ng/mL* Oxycodone , 100 ng/mL PCP 25 ng/mL Propoxyphene , 300 ng/mL Tricyclic Antidepressants 300 ng/mL Cannabinoids (THC) , 50 ng/mL Tests which yield a presumptive positive result must be , tested using a more specific alternate chemical method in &a-1R&a+25V*p+0X*s4902H*c202B*c15G*c2P*p-0X&a-25V&a+1R Name: Warren Flood : 1950 M66 MedRec: [id number] AcctNum: [id number] Prepared: WedSep 08, 2016 19:45 by Interface Page 15 of 16 [facility] EMERGENCY RECORD order to obtain, a confirmed analytical result. Additional confirmation and identification, may be ordered on a routine basis, if desired. Presumptive positive urines, are held for two weeks. . (17:41 KILLIAN) Wright: KILLIAN=MD Inder, Kenyon DEVRIES=Pedro RN, Romero ROBBINS=DIOR Elias, Steve QUEZADA=JAYNA Reddy, Eva JACOBS=DIOR Castellanos, Carrol &a-1R&a+25V*p+0X*e1333W*c202B*c15G*c2P*p-0X&a-25V&a+1R Name: Warren Flood : 1950 M66 MedRec: [id number] AcctNum: [id number] Prepared: WedSep 08, 2016 19:45 by Interface Page 16 of 16 [facility]
== END 2016-09-08 19:04 | disposition short-term general hospital (02) ==
LOC: MADERS 15:04
DX: J81.1 Chronic pulmonary edema (principal); E11.9 Type 2 diabetes mellitus without complications; I10 Essential (primary) hypertension; E78.5 Hyperlipidemia, unspecified; E78.00 Pure hypercholesterolemia, unspecified
CPT/HCPCS: 51702; 70450; 71010; 71260; 72125; 74177; 80053; 80306; 82553; 82805; 83880; 84484; 85025; 93005; 94660; 94760; 96374; 96375; J1940; J2310

== ENCOUNTER 2022-03-22 21:38 | Emergency (ER) | payer MEDICARE, SELFPAY ==
[2022-03-22 22:16] LABS: #Basophils 0.1 thou/uL (0.0-0.2); #Monocytes 0.8 thou/uL (0.11-0.59); #Neutrophils 4.4 thou/uL (1.40-6.50); %Basophils 0.8 % (0.0-1.0); %Eosinophils 0.1 % (0.0-10.0); %Lymphocytes 27.2 % (21.0-51.0); %Monocytes 10.9 % (0.0-10.0); Hemoglobin 16.4 g/dL (14.0-18.0); Mean Corpuscular Hemoglobin 30.1 pg (27.0-31.0); Mean Platelet Volume 8.8 fL (7.4-10.4); Platelet Count 101 thou/uL (130-400); RBC Distribution Width 14.6 % (11.5-14.5); Red Blood Cell (RBC) Count 5.46 mill/uL (4.70-6.10); White Blood Cell (WBC) Count 7.3 thou/uL (4.8-10.8)
[2022-03-22 22:23] LABS: Platelet Morphology Comment Appears Decreased
[2022-03-22 22:36] LABS: ALT (SGPT) 16 U/L (8-55); AST (SGOT) 42 U/L (5-34); Albumin 3.3 g/dL (3.4-4.8); Alkaline Phosphatase 63 U/L (40-110); Anion Gap 16 mmol/L (10-20); BUN (Urea Nitrogen) 18 mg/dL (8.4-25.7); Bilirubin, Total 0.5 mg/dL (0.2-1.2); CK (CPK) 372 U/L (30-200); Calc. Creatinine Clearance 0 mL/min (70-130); Calcium 8.8 mg/dL (7.8-10.44); Carbon Dioxide 25 mmol/L (23-31); Chloride 99 mmol/L (98-107); Estimated GFR 66; Glucose 67 mg/dL (83-110); Lipase 17 U/L (8-78); Potassium 3.1 mmol/L (3.5-5.1); Protein, Total 6.3 g/dL (5.8-8.1); Sodium 137 mmol/L (136-145)
[2022-03-22 22:57] LABS: Bilirubin Moderate (Negative); Blood, Urine Negative (Negative); Clarity Slightly Cloudy (Clear); Glucose, Urine (Dipstick) >=1000 mg/dL (Negative); Ketone, Urine 15 mg/dL (Negative); Leukocyte Negative (Negative); Nitrite Negative (Negative); Protein, Urine (Dipstick) 100 mg/dL (Neg-Trace); Specific Gravity, Urine 1.025 (1.005-1.030); Urobilinogen 0.2 mg/dL (Less than 2); pH, Urine 5.5 (5.0-9.0)
[2022-03-22 23:01] LABS: RBC/HPF 0-3 HPF (0-3); Squamous Epithelial 0-3 HPF (0-3); WBC/HPF 0-3 HPF (0-3)
[2022-03-22 23:02] LABS: Bacteria/HPF Rare-Few HPF (None Seen); Mucous/LPF 1+ LPF (<2+)
== END 2022-03-23 00:30 | disposition home or self-care (01) ==
LOC: MADERS 21:38
DX: R10.12 Left upper quadrant pain (principal); M79.605 Pain in left leg; M79.604 Pain in right leg; I11.0 Hypertensive heart disease with heart failure; I50.9 Heart failure, unspecified; E11.9 Type 2 diabetes mellitus without complications; E78.5 Hyperlipidemia, unspecified; E78.00 Pure hypercholesterolemia, unspecified; J44.9 Chronic obstructive pulmonary disease, unspecified; G47.00 Insomnia, unspecified; F17.210 Nicotine dependence, cigarettes, uncomplicated; Z95.0 Presence of cardiac pacemaker; Z79.84 Long term (current) use of oral hypoglycemic drugs; Z79.82 Long term (current) use of aspirin; Z79.899 Other long term (current) drug therapy
CPT/HCPCS: 36416; 80053; 81003; 81015; 82550; 83605; 83690; 84443; 85025; 93005

== ENCOUNTER 2022-10-13 12:19 | Emergency (ER) | payer MEDICARE ==
[2022-10-13 12:47] LABS: #Basophils 0.1 thou/uL (0.0-0.2); #Eosinphils 0.1 thou/uL (0.0-0.7); #Monocytes 0.9 thou/uL (0.11-0.59); #Neutrophils 9.9 thou/uL (1.40-6.50); %Basophils 0.5 % (0.0-1.0); %Eosinophils 0.6 % (0.0-10.0); %Lymphocytes 15.5 % (21.0-51.0); %Monocytes 6.9 % (0.0-10.0); %Neutrophils 76.6 % (42.0-75.0); Hemoglobin 14.6 g/dL (14.0-18.0); Mean Corpuscular HGB CONC 33.6 g/dL (32.0-36.0); Mean Corpuscular Hemoglobin 31.7 pg (27.0-31.0); Mean Corpuscular Volume 94.4 fl (78.0-98.0); Mean Platelet Volume 8.2 fL (7.4-10.4); Platelet Count 134 10x3/uL (130-400); RBC Distribution Width 13.3 % (11.5-14.5)
[2022-10-13 13:06] LABS: ALT (SGPT) 2241 U/L (8-55); AST (SGOT) 2459 U/L (5-34); Albumin 3.9 g/dL (3.4-4.8); Alkaline Phosphatase 83 U/L (40-110); Anion Gap 19 mmol/L (10-20); BUN (Urea Nitrogen) 54 mg/dL (8.4-25.7); Bilirubin, Total 0.9 mg/dL (0.2-1.2); Calc. Creatinine Clearance 0 mL/min (70-130); Calcium 9.6 mg/dL (7.8-10.44); Carbon Dioxide 32 mmol/L (23-31); Chloride 92 mmol/L (98-107); Estimated GFR 27; Globulin 2.9 g/dL (2.4-3.5); Glucose 201 mg/dL (83-110); Magnesium 2.2 mg/dL (1.6-2.6); Potassium 4.1 mmol/L (3.5-5.1); Protein, Total 6.8 g/dL (5.8-8.1); Sodium 139 mmol/L (136-145)
[2022-10-13] MEDS ORDERED: Sodium Chloride 0.9% 100 ML ONE (13:15)
[2022-10-13] MEDS ORDERED: cefTRIAXone\\ROCEPHIN 1 GM VIAL ONE (13:15)
[2022-10-13] MEDS ORDERED: Furosemide 40 MG/4 ML VIAL ONE (13:48)
[2022-10-13] MEDS ORDERED: Aspirin Chewable 81 MG TAB ONE (13:48)
[2022-10-13 13:59] LABS: CKMB 10.2 ng/mL (0-6.6)
[2022-10-13 14:14] LABS: SARS-CoV-2 NAA Rapid Test Not Detected (NotDetected)
[2022-10-13 14:36] LABS: Bilirubin Negative (Negative); Blood, Urine Moderate (Negative); Glucose, Urine (Dipstick) Negative (Negative); Ketone, Urine Negative (Negative); Leukocyte Negative (Negative); Nitrite Negative (Negative); Protein, Urine (Dipstick) 100 mg/dL (Neg-Trace); Specific Gravity, Urine 1.015 (1.005-1.030); Urobilinogen 0.2 mg/dL (Less than 2)
[2022-10-13 14:37] LABS: Clarity Hazy (Clear)
[2022-10-13 14:46] LABS: RBC/HPF 0-3 HPF (0-3)
[2022-10-13 14:47] LABS: Bacteria/HPF Rare-Few HPF (None Seen); Squamous Epithelial 0-3 HPF (0-3); WBC/HPF None Seen HPF (0-3)
[2022-10-13 14:48] LABS: Amphetamine Not Detected (NotDetected); Barbiturates Screen Not Detected (NotDetected); Benzodiazepine Screen Not Detected (NotDetected); Cocaine Metabolite Screen Not Detected (NotDetected); Medtox Control Line Valid? VALID (VALID); Methadone Not Detected (NotDetected); Methamphetamine Not Detected (NotDetected); Opiate Screen Not Detected (NotDetected); Oxycodone Screen Not Detected (NotDetected); Phencyclidine (PCP) Not Detected (NotDetected); THC/Cannabinoid Screen Detected (NotDetected); Tricyclic Screen Not Detected (NotDetected)
[2022-10-13 14:51] LABS: Base Excess-Venous 7.1 mmol/L (-2.0 to 3.0); Bicarbonate (HCO3v) 35.4 mmol/L (22.0-28.0); CO2 Tension (PvCO2) 63.9 mmHg (42.0-51.0); Calcium, Ionized 1.06 mmol/L (1.15-1.33); Chloride 94 mmol/L (98-107); Hemoglobin - Calc 16.3 g/dL (14.0-18.0); Potassium 3.5 mmol/L (3.5-5.1); Sodium 138 mmol/L (138-145); T. Carbon Dioxide 37.4 mmol/L (22.0-28.0); vO2 Saturation-calc 99.5 % (60.0-85.0)
[2022-10-13 15:06] LABS: INR-International Normal Ratio 1.5; Prothrombin Time 18.4 sec (12.0-14.7)
[2022-10-13 15:07] LABS: PTT 30.5 sec (22.9-36.1)
== END 2022-10-13 16:35 | disposition short-term general hospital (02) ==
LOC: MADERS 12:19
DX: N17.9 Acute kidney failure, unspecified (principal); I11.0 Hypertensive heart disease with heart failure; I50.9 Heart failure, unspecified; E11.9 Type 2 diabetes mellitus without complications; E78.00 Pure hypercholesterolemia, unspecified; J44.9 Chronic obstructive pulmonary disease, unspecified; Z87.891 Personal history of nicotine dependence; Z20.822 Contact with and (suspected) exposure to COVID-19
CPT/HCPCS: 70450; 71045; 80053; 80306; 81003; 81015; 82330; 82553; 82803; 83605; 83735; 83880; 84443; 84484; 85025; 85610; 85730; 87040; 93005; 96365; 96375; J0696; J1940; J3490

== ENCOUNTER 2022-12-08 13:12 | Emergency (ER) | payer MEDICARE ==
[2022-12-08 13:55] LABS: #Basophils 0.1 thou/uL (0.0-0.2); #Eosinphils 0.8 thou/uL (0.0-0.7); #Lymphocytes 2.1 thou/uL (1.20-3.40); #Monocytes 0.6 thou/uL (0.11-0.59); #Neutrophils 5.5 thou/uL (1.40-6.50); %Basophils 0.6 % (0.0-1.0); %Eosinophils 8.6 % (0.0-10.0); %Lymphocytes 23.5 % (21.0-51.0); %Monocytes 6.4 % (0.0-10.0); %Neutrophils 60.9 % (42.0-75.0); Hemoglobin 13.1 g/dL (14.0-18.0); Mean Corpuscular HGB CONC 31.1 g/dL (32.0-36.0); Mean Corpuscular Hemoglobin 31.5 pg (27.0-31.0); Mean Corpuscular Volume 101.2 fl (78.0-98.0); Mean Platelet Volume 8.7 fL (7.4-10.4); Platelet Count 209 10x3/uL (130-400); RBC Distribution Width 15.1 % (11.5-14.5); Red Blood Cell (RBC) Count 4.17 mill/uL (4.70-6.10)
[2022-12-08 14:13] LABS: Acetaminophen Less than 10.0 mcg/mL (10.0-30.0); Alcohol Less than 10 mg/dL (Less than 10); Salicylate Less than 8.0 mg/dL (15.0-30.0)
[2022-12-08 14:17] LABS: ALT (SGPT) 8 U/L (8-55); AST (SGOT) 13 U/L (5-34); Albumin 3.4 g/dL (3.4-4.8); Alkaline Phosphatase 89 U/L (40-110); Anion Gap 16 mmol/L (10-20); BUN (Urea Nitrogen) 30 mg/dL (8.4-25.7); Bilirubin, Total 0.2 mg/dL (0.2-1.2); Calc. Creatinine Clearance 0 mL/min (70-130); Carbon Dioxide 31 mmol/L (23-31); Chloride 97 mmol/L (98-107); Estimated GFR 39; Globulin 2.5 g/dL (2.4-3.5); Glucose 221 mg/dL (83-110); Potassium 4.7 mmol/L (3.5-5.1); Protein, Total 5.9 g/dL (5.8-8.1); Sodium 139 mmol/L (136-145)
[2022-12-08 15:47] LABS: Bilirubin Negative (Negative); Blood, Urine Negative (Negative); Clarity Clear (Clear); Glucose, Urine (Dipstick) Negative (Negative); Ketone, Urine Negative (Negative); Leukocyte Negative (Negative); Nitrite Negative (Negative); Protein, Urine (Dipstick) 30 mg/dL (Neg-Trace); Specific Gravity, Urine 1.015 (1.005-1.030); Urobilinogen 0.2 mg/dL (Less than 2); pH, Urine 6.5 (5.0-9.0)
[2022-12-08 15:50] LABS: Bacteria/HPF None Seen HPF (None Seen); RBC/HPF 0-3 HPF (0-3); Squamous Epithelial 0-3 HPF (0-3); WBC/HPF 0-3 HPF (0-3)
[2022-12-08 15:55] LABS: Cocaine Metabolite Screen Not Detected (NotDetected); Opiate Screen Detected (NotDetected); Phencyclidine (PCP) Not Detected (NotDetected); THC/Cannabinoid Screen Not Detected (NotDetected)
[2022-12-08 15:56] LABS: Amphetamine Not Detected (NotDetected); Barbiturates Screen Not Detected (NotDetected); Benzodiazepine Screen Not Detected (NotDetected); Methadone Not Detected (NotDetected); Methamphetamine Not Detected (NotDetected); Oxycodone Screen Not Detected (NotDetected); Tricyclic Screen Not Detected (NotDetected)
== END 2022-12-08 17:00 | disposition home or self-care (01) ==
LOC: MADERS 13:12
DX: R53.1 Weakness (principal); R16.0 Hepatomegaly, not elsewhere classified; M54.50 Low back pain, unspecified; R94.31 Abnormal electrocardiogram [ECG] [EKG]; I13.0 Hypertensive heart and chronic kidney disease with heart failure and stage 1 through stage 4 chronic kidney disease, or unspecified chronic kidney disease; E11.22 Type 2 diabetes mellitus with diabetic chronic kidney disease; N18.9 Chronic kidney disease, unspecified; I50.9 Heart failure, unspecified; J44.9 Chronic obstructive pulmonary disease, unspecified; E78.00 Pure hypercholesterolemia, unspecified; G47.00 Insomnia, unspecified; F17.210 Nicotine dependence, cigarettes, uncomplicated; Z79.899 Other long term (current) drug therapy; Z95.0 Presence of cardiac pacemaker
CPT/HCPCS: 70450; 71045; 72125; 74177; 80053; 80306; 80307; 81003; 81015; 83605; 83735; 84443; 84484; 85025; 87040; 87086; 93005; 94760; Q9967